=== PATIENT | female | born 1955 | race Caucasian/White ===

== ENCOUNTER 2018-08-16 07:06 | Outpatient (CLI) | payer BC ==
--- NOTE | 2018-08-16 09:27 | ULT ---
RENAL ULTRASOUND: HISTORY: Chronic renal disease. FINDINGS: Real-time imaging of the right and left kidneys was performed. The right kidney measures 9.6 and the left kidney 10.3 cm in size. No signs of cysts, mass, or obstruction. The kidneys have a slightly lobulated contour. The bladder was empty at the time of this exam. IMPRESSION: Normal-sized kidneys without evidence of obstruction. POS: [facility]
== END 2018-08-16 07:07 | disposition home or self-care (01) ==
LOC: SCSULT 07:06
PROVIDERS: ATTEND Internal Medicine Nephrology
DX: I12.9 Hypertensive chronic kidney disease with stage 1 through stage 4 chronic kidney disease, or unspecified chronic kidney disease (principal); N18.3 Chronic kidney disease, stage 3 (moderate)
CPT/HCPCS: 36415; 76770; 80048; 81003; 82040; 82306; 82570; 83970; 84156; 86038; 86225; 86235

== ENCOUNTER 2019-05-09 15:02 | Outpatient (CLI) | payer BC ==
--- NOTE | 2019-05-09 16:41 | RAD ---
EXAM: RIGHT HIP TWO VIEWS: 05/09/19 HISTORY: Right hip and buttock pain for two months without trauma. No evidence for acute fracture or dislocation involving the hip. Mild degenerative changes. There is minimal sclerosis at the pubic symphysis and mild degenerative changes of the right SI joint. IMPRESSION: Degenerative and osteoarthrosis changes. No acute fracture or dislocation. POS: [facility]
== END 2019-05-09 15:03 | disposition home or self-care (01) ==
LOC: SCSRAD 15:02
PROVIDERS: ATTEND Internal Medicine Rheumatology
DX: M25.551 Pain in right hip (principal); M53.3 Sacrococcygeal disorders, not elsewhere classified; M16.11 Unilateral primary osteoarthritis, right hip

== ENCOUNTER 2019-06-06 10:18 | Outpatient (CLI) | payer BC ==
--- NOTE | 2019-06-06 10:49 | RAD ---
Exam: Lumbar spine 3 views HISTORY: Low back pain, radiating of the right leg to ankle x2 months FINDINGS: 5 lumbar type vertebral bodies. Vertebral body height is maintained. No fracture. 2.7 mm of anterolisthesis of L4 upon L5. Mild posterior element hypertrophy at L4-L5 and L5-S1. There are degenerative changes of the distal thoracic spine, thoracolumbar junction and upper lumbar spine with loss of disc space and osteophyte formation. IMPRESSION: 1. Grade 1 anterolisthesis of L4 upon L5. 2. Degenerative changes involving the distal thoracic spine, thoracic lumbar junction and upper lumba r spine. There is loss of disc space height and osteophyte formation.
--- NOTE | 2019-06-06 11:52 | RAD ---
XR Sacroiliac Joints >=3 View History: M [age]. Low back pain. Comparison: None Findings: There is moderate degenerative disease of the SI joint with sclerosis and narrowing. As als o narrowing of pubic symphysis with sclerosis. No acute fracture or malalignment. There are calcifications are seen over the right lower quadrant of the abdomen which could be within gonadal veins. Impression: 1. SI joint degenerative disease, moderate, bilateral. 2. Advanced pubic symphysitis.
== END 2019-06-06 10:19 | disposition home or self-care (01) ==
LOC: SCSRAD 10:18
PROVIDERS: ATTEND Family Medicine
DX: M54.41 Lumbago with sciatica, right side (principal); M53.3 Sacrococcygeal disorders, not elsewhere classified
CPT/HCPCS: 72100; 72202

== ENCOUNTER 2019-07-03 10:45 | Outpatient (CLI) | payer BC ==
--- NOTE | 2019-07-03 14:08 | MRI ---
MRI LUMBAR SPINE PERFORMED WITHOUT CONTRAST ENHANCEMENT: Date: 07/03/19 HISTORY: Low back pain radiating to right leg. FINDINGS: Vertebral bodies are normal in height. Disc spaces are all relatively well preserved. There are some disc desiccation changes present. There is a spondylolisthesis of L4 on L5 of approximately 5 mm. The re is no significant periaortic adenopathy and the visualized portions of the kidneys are normal. T12-L1: Unremarkable. L1-2: Degenerative facet changes without canal or foraminal stenosis. L2-3: Facet and ligamentous hypertrophic change without canal or foraminal stenosis. L3-4: There is a mild to moderate degree of canal narrowing. This is related to disc bulging, but ma inly the facet and ligamentous hypertrophic changes contribute to this finding. There also appears to be a component of a left lateral disc protrusion. L4-5: Severe canal stenosis is caused by a combination of disc bulge, facet and ligamentous hypertro phic change, and spondylolisthesis. No significant foraminal narrowing. L5-S1: There is moderately severe canal stenosis also present at this level. This is mainly related to the facet and ligamentous hypertrophic change. There is some mild foraminal narrowing bilaterally. IMPRESSION: Multilevel areas of canal and foraminal stenosis, most significant findings are at L4-5 and L5-S1. POS: [facility]
== END 2019-07-03 10:46 | disposition home or self-care (01) ==
LOC: SCSMRI 10:45
PROVIDERS: ATTEND Family Medicine
DX: M54.16 Radiculopathy, lumbar region (principal); M48.061 Spinal stenosis, lumbar region without neurogenic claudication; M48.07 Spinal stenosis, lumbosacral region
CPT/HCPCS: 72148

== ENCOUNTER 2022-01-23 10:22 | Outpatient (CLI) | payer MEDICARE, BC | END 2022-01-23 10:23 | disposition home or self-care (01) | LOC: SCSRAD 10:22 | PROVIDERS: ATTEND Internal Medicine Rheumatology | DX: M25.541 Pain in joints of right hand (principal); R22.31 Localized swelling, mass and lump, right upper limb; M18.11 Unilateral primary osteoarthritis of first carpometacarpal joint, right hand ==